=== PATIENT | female | born 1955 | race Caucasian/White ===

== ENCOUNTER → 2016-12-27 | Outpatient (CLI) | payer OTHER ==
[2016-12-27 08:57] LABS: HEMOGLOBIN 13.7 gm/dl (12.3-15.3); RED BLOOD COUNT 4.52 M/UL (4.00-5.10); WHITE BLOOD COUNT 6.8 K/UL (4.5-11.0)
[2016-12-27 10:00] LABS: BUN/CREATININE RATIO 9 (0-10)
== END ==
LOC: LAB 08:23
PROVIDERS: Internal Medicine
DX: E55.9 Vitamin D deficiency, unspecified (principal); E78.5 Hyperlipidemia, unspecified
CPT/HCPCS: 36415; 80048; 80061; 80076; 84443; 85025

== ENCOUNTER → 2016-12-29 | Outpatient (CLI) | payer OTHER | LOC: KOH-I 09:38 | DX: K76.9 Liver disease, unspecified (principal); R93.3 Abnormal findings on diagnostic imaging of other parts of digestive tract | CPT/HCPCS: 74178; Q9962 ==

== ENCOUNTER → 2017-03-03 | Outpatient (CLI) | payer OTHER | LOC: CT 07:45 | DX: F17.210 Nicotine dependence, cigarettes, uncomplicated (principal); R91.8 Other nonspecific abnormal finding of lung field | CPT/HCPCS: G0297 ==

== ENCOUNTER → 2020-09-27 | Outpatient (CLI) | payer MEDICARE ==
[~2020-09-27] MED LIST: AMLODIPINE BESY10 MG PO; ASPIRIN 325MG325 MG PO; CELEBREX 200MG200 MG PO; CYMBALTA30 MG PO; CYMBALTA60 MG PO; DRISDOL1250 MCG PO; ECOTRIN81 MG PO; EVISTA60 MG PO; FLONASE 0.05% N16 GM; FLUTICASONE SPRAY; HYDROCODON-ACE1 EAC2 PO; IMITREX100 MG PO; IPRAT-ALBUT 0.5-3 ML INH; LIORESAL TAB 1010 MG PO; LIPITOR10 MG PO; LO-DOSE ASPIRIN81 MG PO; MEDROL DOSEPAK 24 MG PO; NEURONTIN800 MG PO; NICOTINE PATCH TOP; OMNICEF 300 MG300 MG PO; PENNSAID112 GM TOP; SPIRIVA 2.5 MCG INH; SPIRIVA RESPIMAT4 GM INH; SYMBICORT 16010.2 GM INH; SYNTHROID25 MCG PO; TOPROL XL50 MG PO; TRICOR 145 MG145 MG PO; VENTOLIN HFA 66.7 GM INH; VITAMIN D21250 MCG PO; VITAMIN D22000 UNIT PO; XANAX 0.25 MG0.25 MG PO
== END ==
LOC: RAD 12:15
DX: M25.552 Pain in left hip (principal); M16.12 Unilateral primary osteoarthritis, left hip
CPT/HCPCS: 73502

== ENCOUNTER → 2020-11-21 | Outpatient (CLI) | payer MEDICARE ==
[2020-11-21 12:52] LABS: HEMOGLOBIN 16.7 gm/dl (12.3-15.3); RED BLOOD COUNT 5.33 M/UL (4.00-5.10); WHITE BLOOD COUNT 8.6 K/UL (4.5-11.0)
[2020-11-21 13:12] LABS: BUN/CREATININE RATIO 16 (0-10)
== END ==
LOC: OPSV2 11:00 → EDSTATUS 11:00 → OPSV2 11:01
PROVIDERS: Orthopaedic Surgery
DX: Z01.818 Encounter for other preprocedural examination (principal); M16.12 Unilateral primary osteoarthritis, left hip; J84.9 Interstitial pulmonary disease, unspecified
CPT/HCPCS: 71046; 80048; 85027; 87081; 93005

== ENCOUNTER → 2021-01-02 | Outpatient (CLI) | payer MEDICARE ==
[2021-01-02 12:24] LABS: HEMOGLOBIN 16.5 gm/dl (12.3-15.3); RED BLOOD COUNT 5.48 M/UL (4.00-5.10); WHITE BLOOD COUNT 11.7 K/UL (4.5-11.0)
[2021-01-02 12:45] LABS: BUN/CREATININE RATIO 17 (0-10)
== END ==
LOC: OPSV2 10:30 → EDSTATUS 10:30 → OPSV2 11:07
PROVIDERS: Orthopaedic Surgery
DX: Z01.812 Encounter for preprocedural laboratory examination (principal); M16.12 Unilateral primary osteoarthritis, left hip
CPT/HCPCS: 36415; 80048; 81001; 85027; 86850; 86900; 86901; J1100; J2795

== ENCOUNTER 2021-01-03 07:54 | Day surgery (SDC) | payer MEDICARE ==
[~2021-01-03] VITALS: Ht 157.5 cm; Wt 58.5 kg
[~2021-01-03 07:54] MED LIST changes: -ASPIRIN 325MG325 MG PO; -HYDROCODON-ACE1 EAC2 PO
[2021-01-04 03:50] LABS: WHITE BLOOD COUNT 11.3 K/UL (4.5-11.0)
[2021-01-04 03:53] LABS: HEMOGLOBIN 12.3 gm/dl (12.3-15.3); RED BLOOD COUNT 3.96 M/UL (4.00-5.10)
[2021-01-04 04:13] LABS: BUN/CREATININE RATIO 16 (0-10)
[2021-01-04] MEDS ORDERED: HYDROCODON-ACE1 EAC2 PO (08:35)
[2021-01-04] MEDS ORDERED: ASPIRIN 325MG325 MG PO (09:49)
== END 2021-01-04 11:47 | disposition home or self-care (01) ==
LOC: OR 07:54 → EDSTATUS 09:30 → M/S 14:14 → OR 01-04 11:47
PROVIDERS: Orthopaedic Surgery
DX: M16.12 Unilateral primary osteoarthritis, left hip (principal); G89.18 Other acute postprocedural pain; I10 Essential (primary) hypertension; E78.5 Hyperlipidemia, unspecified; J44.9 Chronic obstructive pulmonary disease, unspecified; K21.9 Gastro-esophageal reflux disease without esophagitis; E07.9 Disorder of thyroid, unspecified; G62.9 Polyneuropathy, unspecified; F41.8 Other specified anxiety disorders; M81.0 Age-related osteoporosis without current pathological fracture; F17.210 Nicotine dependence, cigarettes, uncomplicated; Z96.641 Presence of right artificial hip joint; Z98.890 Other specified postprocedural states; Z88.8 Allergy status to other drugs, medicaments and biological substances; Z79.82 Long term (current) use of aspirin; Z79.899 Other long term (current) drug therapy
CPT/HCPCS: 36415; 73501; 73502; 76000; 80048; 85027; 97110-GP-CQ; 97116-GP-CQ; 97161; 97166; 97535; C1776; J0690; J1100; J1885; J2001; J2405; J2704; J2710; J3010; J3370; J7050; J7120

== ENCOUNTER → 2021-06-10 | Outpatient (CLI) | payer MEDICARE ==
[~2021-06-10] MED LIST changes: +ASPIRIN 325MG325 MG PO; +HYDROCODON-ACE1 EAC2 PO
== END ==
LOC: KOH-I 14:07
DX: F17.210 Nicotine dependence, cigarettes, uncomplicated (principal); R91.8 Other nonspecific abnormal finding of lung field
CPT/HCPCS: 71271

== ENCOUNTER → 2021-09-02 | Outpatient (CLI) | payer MEDICARE | LOC: KOH-I 12:38 | DX: J44.1 Chronic obstructive pulmonary disease with (acute) exacerbation (principal) | CPT/HCPCS: 71046 ==

== ENCOUNTER → 2022-02-24 | Outpatient (CLI) | payer MEDICARE | LOC: HEART 5 15:16 | DX: M79.89 Other specified soft tissue disorders (principal); I27.20 Pulmonary hypertension, unspecified; I34.0 Nonrheumatic mitral (valve) insufficiency; I70.0 Atherosclerosis of aorta; I51.89 Other ill-defined heart diseases | CPT/HCPCS: 93306 ==

== ENCOUNTER 2022-03-06 10:27 | Emergency (ER) | payer MEDICARE ==
[2022-03-06 11:29] LABS: HEMOGLOBIN 16.8 gm/dl (12.3-15.3); RED BLOOD COUNT 5.87 M/UL (4.00-5.10); WHITE BLOOD COUNT 5.9 K/UL (4.5-11.0)
[2022-03-06 12:00] LABS: BUN/CREATININE RATIO 11 (0-10)
== END 2022-03-06 14:28 | disposition home or self-care (01) ==
LOC: ER1 10:27
PROVIDERS: Emergency Medicine
DX: R10.11 Right upper quadrant pain (principal); J44.9 Chronic obstructive pulmonary disease, unspecified; I10 Essential (primary) hypertension; R10.816 Epigastric abdominal tenderness
CPT/HCPCS: 76705; 80053; 81001; 83605; 83690; 84484; 85025; 86140; 96374; 96375; 99284; J1885; J2405; Q9967